=== PATIENT | female | born 1985 ===

== ENCOUNTER 2019-11-29 12:55 | Observation (INO) | payer BC ==
[2019-11-29] MEDS ORDERED: Sodium Chloride 0.9% 10 ML Syringe FLUSH PRN (13:15)
[2019-11-29] MEDS ORDERED: Sodium Chloride 0.9% 2.5 ML Syringe FLUSH PRN (13:15)
[2019-11-29] MEDS ORDERED: Sodium Chloride 0.9% 1,000 ML IV ONE (13:16)
[2019-11-29] MEDS ORDERED: Ondansetron 4 MG/2 ML SDV IVPUSH ONE (13:16)
[2019-11-29] MEDS ORDERED: fentaNYL 100 MCG/2 ML SDV IVPUSH ONE (13:16)
--- NOTE | 2019-11-29 13:39 | EDM.PDOC ---
ED HPI GENERAL MEDICAL PROBLEM - General Chief Complaint: Abdominal Pain Stated Complaint: POSSIBLE PINSIDES Time Seen by Provider: 11/29/19 13:02 Source of Information: Reports: Patient History Limitations: Reports: No Limitations - History of Present Illness INITIAL COMMENTS - FREE TEXT/NARRATIVE: Presents reporting right lower quadrant abdominal pain. States pain started la st night and caused much difficulty with trying to sleep. This morning pain intensified and she became nauseated. Vomited x1 with dry heaves thereafter. She just got off her period. Has a copper IUD. Otherwise healthy without chronic medical problems. Did have 3 small BMs that were soft and brown this morning. The patient states that last night she thought she might be constipated so she took some milk of magnesia. No fever, dysuria. Right Lower Abdomen Pain Score (Numeric/FACES): 6 - Related Data Allergies Allergy/AdvReac Type Severity Reaction Status Date / Time No Known Allergies Allergy Verified 11/29/19 13:03 Home Meds: Home Meds . 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 ED EXAM, GI/ABD - Physical Exam Exam: See Below Exam Limited By: No Limitations General Appearance: Alert, No Apparent Distress Ears: Normal External Exam Nose: Normal Inspection Throat/Mouth: Normal Inspection Head: Atraumatic, Normocephalic Neck: Normal Inspection Respiratory/Chest: No Respiratory Distress, Lungs Clear, Normal Breath Sounds Cardiovascular: Normal Peripheral Pulses, Regular Rate, Rhythm GI/Abdominal Exam: Normal Bowel Sounds, Soft, No Distention, Other (Visit tenderness right lower quadrant. Positive psoas sign.) Back Exam: Normal Inspection Extremities: Normal Inspection Neurological: Alert, Oriented, Normal Cognition Psychiatric: Normal Affect, Normal Mood Skin Exam: Warm, Dry, Intact, Normal Color, No Rash Lymphatic: No Adenopathy Course - Vital Signs Last Recorded V/S: Last Vital Signs Temp 35.9 C L 11/29/19 13:04 Pulse 97 11/29/19 13:04 Resp 13 11/29/19 13:04 BP 114/66 11/29/19 13:04 Pulse Ox 100 11/29/19 13:04 - Orders/Labs/Meds Orders: Active Orders 24 hr Category Date Time Status Patient Status [ADT] Stat ADT 11/29/19 14:26 Ordered CORONAVIRUS COVID-19 TOMAS [MOLEC] Stat Lab 11/29/19 14:20 Received Sodium Chloride 0.9% [Saline Flush] Med 11/29/19 13:15 Active 10 ml FLUSH ASDIRECTED PRN Sodium Chloride 0.9% [Saline Flush] Med 11/29/19 13:15 Active 2.5 ml FLUSH ASDIRECTED PRN Saline Lock Insert [OM.PC] Stat Oth 11/29/19 13:15 Ordered Medication Orders Sodium Chloride (Saline Flush) 10 ml FLUSH ASDIRECTED PRN PRN Reason: Keep Vein Open Last Admin: 11/29/19 13:22 Dose: 10 ml Documented by: JAYSON Sodium Chloride (Saline Flush) 2.5 ml FLUSH ASDIRECTED PRN PRN Reason: Keep Vein Open Last Admin: 11/29/19 13:22 Dose: 2.5 ml Documented by: JAYSON Labs: Laboratory Tests 11/29/19 11/29/19 11/29/19 Range/Units 13:15 13:15 13:32 WBC 14.46 H (4.0-11.0) K/uL RBC 4.67 (4.30-5.90) M/uL Hgb 11.4 L (12.0-16.0) g/dL Hct 36.9 (36.0-46.0) % MCV 79.0 L (80.0-98.0) fL MCH 24.4 L (27.0-32.0) pg MCHC 30.9 L (31.0-37.0) g/dL RDW Std Deviation 47.0 (28.0-62.0) fl RDW Coeff of Lonny 16 H (11.0-15.0) % Plt Count 248 (150-400) K/uL MPV 9.50 (7.40-12.00) fL Neut % (Auto) 86.5 H (48.0-80.0) % Lymph % (Auto) 3.7 L (16.0-40.0) % [place] % (Auto) 9.7 (0.0-15.0) % Eos % (Auto) 0.0 (0.0-7.0) % Baso % (Auto) 0.1 (0.0-1.5) % Neut # (Auto) 12.5 H (1.4-5.7) K/uL Lymph # (Auto) 0.5 L (0.6-2.4) K/uL [place] # (Auto) 1.4 H (0.0-0.8) K/uL Eos # (Auto) 0.0 (0.0-0.7) K/uL Baso # (Auto) 0.0 (0.0-0.1) K/uL Nucleated RBC % 0.0 /100WBC Nucleated RBCs # 0 K/uL Sodium (136-145) mmol/L Potassium (3.5-5.1) mmol/L Chloride (98-107) mmol/L Carbon Dioxide (21.0-32.0) mmol/L BUN (7.0-18.0) mg/dL Creatinine (0.6-1.0) mg/dL Est Cr Clr Drug Dosing mL/min Estimated GFR (MDRD) ml/min Glucose (74-106) mg/dL Calcium (8.5-10.1) mg/dL Total Bilirubin (0.2-1.0) mg/dL AST (15-37) IU/L ALT (14-63) IU/L Alkaline Phosphatase (46-116) U/L Total Protein (6.4-8.2) g/dL Albumin (3.4-5.0) g/dL Globulin (2.6-4.0) g/dL Albumin/Globulin Ratio (0.9-1.6) Urine Color YELLOW Urine Appearance CLEAR Urine pH 8.5 H (5.0-8.0) Ur Specific [place] 1.025 (1.001-1.035) Urine Protein NEGATIVE (NEGATIVE) mg/dL Urine Glucose (UA) NEGATIVE (NEGATIVE) mg/dL Urine Ketones 15 H (NEGATIVE) mg/dL Urine Occult Blood SMALL H (NEGATIVE) Urine Nitrite NEGATIVE (NEGATIVE) Urine Bilirubin NEGATIVE (NEGATIVE) Urine Urobilinogen 0.2 (<2.0) EU/dL Ur Leukocyte Esterase NEGATIVE (NEGATIVE) Urine RBC 0-2 (0-2/HPF) Urine WBC 1-2 (0-5/HPF) Ur Epithelial Cells FEW (NONE-FEW) Amorphous Sediment FEW (NEGATIVE) Urine Bacteria FEW (NEGATIVE) Urine Mucus FEW (NONE-MOD) Urine HCG, Qual NEGATIVE (NEGATIVE) 11/29/19 Range/Units 13:32 WBC (4.0-11.0) K/uL RBC (4.30-5.90) M/uL Hgb (12.0-16.0) g/dL Hct (36.0-46.0) % MCV (80.0-98.0) fL MCH (27.0-32.0) pg MCHC (31.0-37.0) g/dL RDW Std Deviation (28.0-62.0) fl RDW Coeff of Lonny (11.0-15.0) % Plt Count (150-400) K/uL MPV (7.40-12.00) fL Neut % (Auto) (48.0-80.0) % Lymph % (Auto) (16.0-40.0) % [place] % (Auto) (0.0-15.0) % Eos % (Auto) (0.0-7.0) % Baso % (Auto) (0.0-1.5) % Neut # (Auto) (1.4-5.7) K/uL Lymph # (Auto) (0.6-2.4) K/uL [place] # (Auto) (0.0-0.8) K/uL Eos # (Auto) (0.0-0.7) K/uL Baso # (Auto) (0.0-0.1) K/uL Nucleated RBC % /100WBC Nucleated RBCs # K/uL Sodium 137 (136-145) mmol/L Potassium 3.9 (3.5-5.1) mmol/L Chloride 100 (98-107) mmol/L Carbon Dioxide 26.4 (21.0-32.0) mmol/L BUN 7 (7.0-18.0) mg/dL Creatinine 1.0 (0.6-1.0) mg/dL Est Cr Clr Drug Dosing 73.51 mL/min Estimated GFR (MDRD) > 60.0 ml/min Glucose 110 H (74-106) mg/dL Calcium 9.4 (8.5-10.1) mg/dL Total Bilirubin 0.5 (0.2-1.0) mg/dL AST 13 L (15-37) IU/L ALT 18 (14-63) IU/L Alkaline Phosphatase 74 (46-116) U/L Total Protein 7.5 (6.4-8.2) g/dL Albumin 3.9 (3.4-5.0) g/dL Globulin 3.6 (2.6-4.0) g/dL Albumin/Globulin Ratio 1.1 (0.9-1.6) Urine Color Urine Appearance Urine pH (5.0-8.0) Ur Specific [place] (1.001-1.035) Urine Protein (NEGATIVE) mg/dL Urine Glucose (UA) (NEGATIVE) mg/dL Urine Ketones (NEGATIVE) mg/dL Urine Occult Blood (NEGATIVE) Urine Nitrite (NEGATIVE) Urine Bilirubin (NEGATIVE) Urine Urobilinogen (<2.0) EU/dL Ur Leukocyte Esterase (NEGATIVE) Urine RBC (0-2/HPF) Urine WBC (0-5/HPF) Ur Epithelial Cells (NONE-FEW) Amorphous Sediment (NEGATIVE) Urine Bacteria (NEGATIVE) Urine Mucus (NONE-MOD) Urine HCG, Qual (NEGATIVE) Meds: Medications Generic Name Dose Route Start Last Admin Trade Name Fresunshine PRN Reason Stop Dose Admin Sodium Chloride 10 ml 11/29/19 13:15 11/29/19 13:22 Saline Flush FLUSH 10 ml ASDIRECTED PRN Administration Keep Vein Open Sodium Chloride 2.5 ml 11/29/19 13:15 11/29/19 13:22 Saline Flush FLUSH 2.5 ml ASDIRECTED PRN Administration Keep Vein Open Discontinued Medications Generic Name Dose Route Start Last Admin Trade Name Freq PRN Reason Stop Dose Admin Fentanyl 50 mcg 11/29/19 13:16 11/29/19 13:21 Sublimaze IVPUSH 11/29/19 13:17 50 mcg ONETIME ONE Administration Sodium Chloride 1,000 mls @ 999 mls/hr 11/29/19 13:16 11/29/19 13:20 Normal Saline IV 11/29/19 14:16 999 mls/hr STAT ONE Administration Ondansetron HCl 4 mg 11/29/19 13:16 11/29/19 13:20 Zofran IVPUSH 11/29/19 13:17 4 mg ONETIME ONE Administration - Re-Assessments/Exams Free Text/Narrative Re-Assessment/Exam: 11/29/19 14:[address] Gamaliel Davison, Gen Surg regarding history, lab, CT findings. Departure - Discharge Information Referrals: Héctor Villegas MD [Primary Care Provider] - Forms: ED Department Discharge Sepsis Event Note (ED) - Evaluation Sepsis Screening Result: No Definite Risk - Focused Exam Vital Signs: Vital Signs Temp Pulse Resp BP Pulse Ox 11/29/19 13:04 35.9 C L 97 13 114/66 100 - My Orders Last 24 Hours: My Active Orders 11/29/19 13:15 Sodium Chloride 0.9% [Saline Flush] 10 ml FLUSH ASDIRECTED PRN Sodium Chloride 0.9% [Saline Flush] 2.5 ml FLUSH ASDIRECTED PRN Saline Lock Insert [OM.PC] Stat 11/29/19 14:20 CORONAVIRUS COVID-19 TOMAS [MOLEC] Stat 11/29/19 14:26 Patient Status [ADT] Stat - Assessment/Plan Last 24 Hours: My Active Orders 11/29/19 13:15 Sodium Chloride 0.9% [Saline Flush] 10 ml FLUSH ASDIRECTED PRN Sodium Chloride 0.9% [Saline Flush] 2.5 ml FLUSH ASDIRECTED PRN Saline Lock Insert [OM.PC] Stat 11/29/19 14:20 CORONAVIRUS COVID-19 TOMAS [MOLEC] Stat 11/29/19 14:26 Patient Status [ADT] Stat
[2019-11-29 13:59] LABS: BLOOD UREA NITROGEN,BUN 7 mg/dL (7.0-18.0); CARBON DIOXIDE,CO2 26.4 mmol/L (21.0-32.0); CHLORIDE,CL 100 mmol/L (98-107); GLUCOSE RANDOM 110 mg/dL (74-106); POTASSIUM,K 3.9 mmol/L (3.5-5.1); SODIUM,NA 137 mmol/L (136-145)
--- NOTE | 2019-11-29 14:16 | CT ---
CT abdomen and pelvis Technique: Multiple axial sections were obtained from above the dome of the diaphragm inferiorly through the pubic symphysis. Intravenous and oral contrast not utilized. Reconstructed coronal and sagittal images were obtained. Findings: Enlarged appendix is seen containing appendicoliths. Surrounding inflammatory change is seen. Findings are compatible with appendicitis. Other findings: Visualized lung bases show nothing acute. Liver contains no focal parenchymal abnormality. Spleen appears normal. Kidneys show no abnormal calcifications or hydronephrosis. Adrenal glands show no nodule. Pancreas shows no discrete abnormality. Aorta shows no aneurysm. Gallbladder contains no calcified gallstones. No retroperitoneal adenopathy or mesenteric abnormalities are seen. No pelvic mass or adenopathy is seen. Small amount of fluid is seen within the dependent pelvis which most likely is physiologic. IUD is present within the endometrial cavity of the uterus. Bone window settings were reviewed which shows no acute osseous finding. Impression: 1. Findings compatible with appendicitis as noted above. 2. Other findings believed to be incidental. Diagnostic code #5 This report was dictated in MDT
[2019-11-29] MEDS ORDERED: Ertapenem 1 GM in Sodium Chloride 0.9% 50 ML IV ONE ×2 (14:53→15:30)
[2019-11-29] MEDS ORDERED: Bupivacaine 0.5% 30 ML SDV ONE (15:26)
[2019-11-29] MEDS ORDERED: Propofol 200 MG/20 ML SDV ONE ×2 (15:30→15:39)
[2019-11-29] MEDS ORDERED: Ondansetron 4 MG/2 ML SDV ONE (15:30)
[2019-11-29] MEDS ORDERED: fentaNYL 100 MCG/2 ML SDV ONE (15:30)
[2019-11-29] MEDS ORDERED: Ketorolac 30 MG/ML SDV ONE (15:31)
[2019-11-29] MEDS ORDERED: Midazolam 1 MG/ML 2 ML SDV ONE (15:31)
[2019-11-29] MEDS ORDERED: Succinylcholine/Sod PF 100 MG/5 ML SYRINGE IV ONE (15:32)
[2019-11-29] MEDS ORDERED: Glycopyrrolate 0.2 MG/ML SDV ONE ×2 (15:32→17:20)
[2019-11-29] MEDS ORDERED: Rocuronium Bromide 50 MG/5 ML Syringe ONE (15:32)
[2019-11-29] MEDS ORDERED: Sodium Chloride 0.9% 20 ML ONE (15:34)
--- NOTE | 2019-11-29 15:56 | PCM.PREANE ---
Preanesthetic Assessment - Procedure Proposed Procedure: Lap appy - Anesthesia/Transfusion/Family Hx Anesthesia History: Prior Anesthesia Without Reaction Family History of Anesthesia Reaction: No Transfusion History: No Prior Transfusion(s) Intubation History: Intubation other than for Surgery in past - Review of Systems General: No Symptoms Pulmonary: No Symptoms Cardiovascular: No Symptoms Gastrointestinal: Nausea, Other (Acute Appendititis) Neurological: No Symptoms Other: Reports: Anxiety (Claustraphobic) - Physical Assessment NPO Status Date: 11/29/19 NPO Status Time: 09:30 (Sip of water) Vital Signs: Last Vital Signs Temp 35.9 C L 11/29/19 13:04 Pulse 118 H 11/29/19 15:26 Resp 15 11/29/19 15:26 BP 104/69 11/29/19 15:26 Pulse Ox 99 11/29/19 15:26 Height: 1.68 m Weight: 61.235 kg ASA Class: 1E Mental Status: Alert & Oriented x3 Airway Class: Mallampati = 2 Dentition: Reports: Normal Dentition Thyro-Mental Finger Breadths: 3 Mouth Opening Finger Breadths: 3 ROM/Head Extension: Full Lungs: Clear to Auscultation Cardiovascular: Regular Rate - Lab Values: Laboratory Last Values WBC 14.46 K/uL (4.0-11.0) H 11/29/19 13:32 RBC 4.67 M/uL (4.30-5.90) 11/29/19 13:32 Hgb 11.4 g/dL (12.0-16.0) L 11/29/19 13:32 Hct 36.9 % (36.0-46.0) 11/29/19 13:32 MCV 79.0 fL (80.0-98.0) L 11/29/19 13:32 MCH 24.4 pg (27.0-32.0) L 11/29/19 13:32 MCHC 30.9 g/dL (31.0-37.0) L 11/29/19 13:32 RDW Std Deviation 47.0 fl (28.0-62.0) 11/29/19 13:32 RDW Coeff of Lonny 16 % (11.0-15.0) H 11/29/19 13:32 Plt Count 248 K/uL (150-400) 11/29/19 13:32 MPV 9.50 fL (7.40-12.00) 11/29/19 13:32 Neut % (Auto) 86.5 % (48.0-80.0) H 11/29/19 13:32 Lymph % (Auto) 3.7 % (16.0-40.0) L 11/29/19 13:32 [place] % (Auto) 9.7 % (0.0-15.0) 11/29/19 13:32 Eos % (Auto) 0.0 % (0.0-7.0) 11/29/19 13:32 Baso % (Auto) 0.1 % (0.0-1.5) 11/29/19 13:32 Neut # (Auto) 12.5 K/uL (1.4-5.7) H 11/29/19 13:32 Lymph # (Auto) 0.5 K/uL (0.6-2.4) L 11/29/19 13:32 [place] # (Auto) 1.4 K/uL (0.0-0.8) H 11/29/19 13:32 Eos # (Auto) 0.0 K/uL (0.0-0.7) 11/29/19 13:32 Baso # (Auto) 0.0 K/uL (0.0-0.1) 11/29/19 13:32 Nucleated RBC % 0.0 /100WBC 11/29/19 13:32 Nucleated RBCs # 0 K/uL 11/29/19 13:32 Sodium 137 mmol/L (136-145) 11/29/19 13:32 Potassium 3.9 mmol/L (3.5-5.1) 11/29/19 13:32 Chloride 100 mmol/L (98-107) 11/29/19 13:32 Carbon Dioxide 26.4 mmol/L (21.0-32.0) 11/29/19 13:32 BUN 7 mg/dL (7.0-18.0) 11/29/19 13:32 Creatinine 1.0 mg/dL (0.6-1.0) 11/29/19 13:32 Est Cr Clr Drug Dosing 73.51 mL/min 11/29/19 13:32 Estimated GFR (MDRD) > 60.0 ml/min 11/29/19 13:32 Glucose 110 mg/dL (74-106) H 11/29/19 13:32 Calcium 9.4 mg/dL (8.5-10.1) 11/29/19 13:32 Total Bilirubin 0.5 mg/dL (0.2-1.0) 11/29/19 13:32 AST 13 IU/L (15-37) L 11/29/19 13:32 ALT 18 IU/L (14-63) 11/29/19 13:32 Alkaline Phosphatase 74 U/L (46-116) 11/29/19 13:32 Total Protein 7.5 g/dL (6.4-8.2) 11/29/19 13:32 Albumin 3.9 g/dL (3.4-5.0) 11/29/19 13:32 Globulin 3.6 g/dL (2.6-4.0) 11/29/19 13:32 Albumin/Globulin Ratio 1.1 (0.9-1.6) 11/29/19 13:32 Urine Color YELLOW 11/29/19 13:15 Urine Appearance CLEAR 11/29/19 13:15 Urine pH 8.5 (5.0-8.0) H 11/29/19 13:15 Ur Specific [place] 1.025 (1.001-1.035) 11/29/19 13:15 Urine Protein NEGATIVE mg/dL (NEGATIVE) 11/29/19 13:15 Urine Glucose (UA) NEGATIVE mg/dL (NEGATIVE) 11/29/19 13:15 Urine Ketones 15 mg/dL (NEGATIVE) H 11/29/19 13:15 Urine Occult Blood SMALL (NEGATIVE) H 11/29/19 13:15 Urine Nitrite NEGATIVE (NEGATIVE) 11/29/19 13:15 Urine Bilirubin NEGATIVE (NEGATIVE) 11/29/19 13:15 Urine Urobilinogen 0.2 EU/dL (<2.0) 11/29/19 13:15 Ur Leukocyte Esterase NEGATIVE (NEGATIVE) 11/29/19 13:15 Urine RBC 0-2 (0-2/HPF) 11/29/19 13:15 Urine WBC 1-2 (0-5/HPF) 11/29/19 13:15 Ur Epithelial Cells FEW (NONE-FEW) 11/29/19 13:15 Amorphous Sediment FEW (NEGATIVE) 11/29/19 13:15 Urine Bacteria FEW (NEGATIVE) 11/29/19 13:15 Urine Mucus FEW (NONE-MOD) 11/29/19 13:15 Urine HCG, Qual NEGATIVE (NEGATIVE) 11/29/19 13:15 SARS Virus RNA (PCR) NEGATIVE (NEGATIVE) 11/29/19 14:20 - Allergies Allergies/Adverse Reactions: Allergies Allergy/AdvReac Type Severity Reaction Status Date / Time No Known Allergies Allergy Verified 11/29/19 13:03 - Blood Blood Available: No - Anesthesia Plan Pre-Op Medication Ordered: Other (Ertapenem) - Acknowledgements Anesthesia Type Planned: General Anesthesia Pt an Appropriate Candidate for the Planned Anesthesia: Yes Alternatives and Risks of Anesthesia Discussed w Pt/Guardian: Yes Pt/Guardian Understands and Agrees with Anesthesia Plan: Yes Additional Comments: Discussed, ? answered, permit signed. 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 [No Known Home Meds] 11/29/19 [History] - CURRENT (IN HOUSE) MEDS Current Meds: Current Medications Ertapenem 1 gm/ Sodium (Chloride) 50 mls @ 100 mls/hr IV ONETIME ONE Stop: 11/29/19 15:59 Last Admin: 11/29/19 15:30 Dose: 100 mls/hr Documented by: Sodium Chloride (Saline Flush) 10 ml FLUSH ASDIRECTED PRN PRN Reason: Keep Vein Open Last Admin: 11/29/19 13:22 Dose: 10 ml Documented by: Sodium Chloride (Saline Flush) 2.5 ml FLUSH ASDIRECTED PRN PRN Reason: Keep Vein Open Last Admin: 11/29/19 13:22 Dose: 2.5 ml Documented by: Discontinued Medications Bupivacaine HCl (Marcaine 0.5%) Confirm Administered Dose 30 ml .ROUTE .STK-MED ONE Stop: 11/29/19 15:27 Fentanyl (Sublimaze) 50 mcg IVPUSH ONETIME ONE Stop: 11/29/19 13:17 Last Admin: 11/29/19 13:21 Dose: 50 mcg Documented by: Fentanyl (Sublimaze) Confirm Administered Dose 100 mcg .ROUTE .STK-MED ONE Stop: 11/29/19 15:31 Glycopyrrolate (Robinul) Confirm Administered Dose 0.2 mg .ROUTE .STK-MED ONE Stop: 11/29/19 15:33 Sodium Chloride (Normal Saline) 1,000 mls @ 999 mls/hr IV STAT ONE Stop: 11/29/19 14:16 Last Admin: 11/29/19 13:20 Dose: 999 mls/hr Documented by: Ertapenem 1 gm/ Sodium (Chloride) 50 mls @ 100 mls/hr IV ONETIME ONE Stop: 11/29/19 15:22 Last Admin: 11/29/19 15:23 Dose: Not Given Documented by: Sodium Chloride (Normal Saline) Confirm Administered Dose 20 mls @ as directed .ROUTE .STK-MED ONE Stop: 11/29/19 15:35 Acetaminophen (Ofirmev) Confirm Administered Dose 100 mls @ as directed .ROUTE .STK-MED ONE Stop: 11/29/19 15:42 Ketorolac Tromethamine (Toradol) Confirm Administered Dose 30 mg .ROUTE .STK-MED ONE Stop: 11/29/19 15:32 Midazolam HCl (Versed 1 Mg/Ml) Confirm Administered Dose 2 mg .ROUTE .STK-MED ONE Stop: 11/29/19 15:32 Ondansetron HCl (Zofran) 4 mg IVPUSH ONETIME ONE Stop: 11/29/19 13:17 Last Admin: 11/29/19 13:20 Dose: 4 mg Documented by: Ondansetron HCl (Zofran) Confirm Administered Dose 4 mg .ROUTE .STK-MED ONE Stop: 11/29/19 15:31 Propofol (Diprivan 20 Ml) Confirm Administered Dose 200 mg .ROUTE .STK-MED ONE Stop: 11/29/19 15:31 Propofol (Diprivan 20 Ml) Confirm Administered Dose 200 mg .ROUTE .STK-MED ONE Stop: 11/29/19 15:40 Rocuronium Julian (Rocuronium Julian) Confirm Administered Dose 50 mg .ROUTE .STK-MED ONE Stop: 11/29/19 15:33 Vecuronium Julian (Vecuronium) Confirm Administered Dose 10 mg .ROUTE .STK-MED ONE Stop: 11/29/19 15:34
--- NOTE | 2019-11-29 16:08 | CONS ---
DATE OF CONSULTATION: 11/29/2019 DATE OF : 1985 PRIMARY CARE PHYSICIAN: MAGUI MULLINS REASON FOR CONSULT: The patient is a pleasant 34-year-old female who says yesterday evening she was having some abdominal pains around 6 p.m. She thought it was gas pain, but it got worse throughout the evening. She had a hard time sleeping. Pain migrated to the right side, and she started having some vomiting this morning and came to the ER for evaluation. On the CT scan, she did have an enlarged appendix containing appendicolith with surrounding inflammatory change consistent with appendicitis. She was also found to have an elevated white cell count of 14.46. The patient denies any fevers or chills. The patient states she had been having normal bowel movements. PAST MEDICAL HISTORY: The patient denies any current home medications. ALLERGIES: No known drug allergies. PAST SURGICAL HISTORY: Multiple C-sections. SOCIAL HISTORY: The patient denies any tobacco use. Denies any illicit drug use. Denies any alcohol use. FAMILY HISTORY: Father with polycystic kidney disease. REVIEW OF SYSTEMS: Complete 12-point review of systems was done and was negative except for what is in the HPI. PHYSICAL EXAMINATION: GENERAL: The patient is lying comfortably on the ER bed. She is alert and oriented, in no acute distress. VITAL SIGNS: Temperature is 96.7, pulse is 97, blood pressure is 114/66, saturating 100% on room air. HEENT: Head is normocephalic and atraumatic. She is wearing her mask. LUNGS: Clear to auscultation bilaterally. No rhonchi or wheezing heard. HEART: Regular rhythm. No murmur appreciated. ABDOMEN: Soft and nondistended. She does have tenderness in the right lower quadrant at [place] point. She does have some guarding. No rebound tenderness. EXTREMITIES: No edema. NEUROLOGIC: Grossly, no motor or neurologic deficit noted. LABORATORY DATA: White cell count is 14.46, hemoglobin is 11.4, platelet count is 248. Sodium 137, potassium 3.9, BUN 7, creatinine 1, glucose is 110. test is negative. IMAGING: Did look at the images and reviewed the report. Does look to have an enlarged swollen appendix with surrounding inflammation consistent with appendicitis with appendicolith. ASSESSMENT AND PLAN: This is a pleasant 34-year-old female with most likely appendicitis. Went over with the patient what appendix was. Went over laparoscopic appendectomy. Went over the risks, goals, and alternatives to the procedure. Risks include, but are not limited to bleeding, infection, abscess formation, injury to nearby structures, failure of staple line, hernia formation, need to convert to open, scar formation, and that this could be something other than appendicitis. The patient understands. She wishes to proceed. ER has already started with antibiotics and hydration. Called the OR team in for laparoscopic appendectomy. ZIGGY MEAD /[id number] LIT
[2019-11-29] MEDS ORDERED: Morphine 10 MG/ML Syringe ONE (16:25)
[2019-11-29] MEDS ORDERED: Morphine 2 MG/ML SYRINGE IVPUSH ONE (16:33)
[2019-11-29] MEDS ORDERED: Octyl 2-Cyanoacrylate 1 Tube ONE (17:19)
[2019-11-29] MEDS ORDERED: HYDROmorphone 2 MG/ML Syringe IVPUSH PRN (17:38)
[2019-11-29] MEDS ORDERED: Ondansetron 4 MG/2 ML SDV IVPUSH PRN (17:38)
--- NOTE | 2019-11-29 17:38 | PCM.OPNOTE ---
- General Post-Op/Procedure Note Date of Surgery/Procedure: 11/29/19 Operative Procedure(s): Lapascopic appendectomy, lysis of adhesions Findings: acute appendicitis Dictation #[id number] Pre Op Diagnosis: acute appendicitis Post-Op Diagnosis: acute appendicitis Anesthesia Technique: General ET Tube Primary Surgeon: Gamaliel Davison Pathology: appendix EBL in mLs: 10 Complications: None Condition: Stable
[2019-11-29] MEDS ORDERED: Lactated Ringers 1,000 ML IV SCH (17:45)
--- NOTE | 2019-11-29 18:13 | PCM.POSTAN ---
POST ANESTHESIA ASSESSMENT - MENTAL STATUS Mental Status: Alert - VITAL SIGNS Vital Signs: Last Vital Signs Temp 37.6 C 11/29/19 17:45 Pulse 92 11/29/19 18:06 Resp 15 11/29/19 18:06 BP 91/50 L 11/29/19 18:06 Pulse Ox 96 11/29/19 18:06 - RESPIRATORY Respiratory Status: Respiratory Rate WNL, Airway Patent, O2 Saturation Stable - CARDIOVASCULAR CV Status: Pulse Rate WNL, Blood Pressure Stable - GASTROINTESTINAL GI Status: No Symptoms - PAIN Pain Score: 1 (soreness) - POST OP HYDRATION Hydration Status: Adequate & Stable - OBSERVATIONS Free Text/Narrative:: Doing well. Tired. Ready for transfer to floor. Will stay overnight. No problems noted.
[2019-11-29] MEDS: Acetaminophen/HYDROcodone 325-5 MG Tab PO PRN (20:10)
--- NOTE | 2019-11-29 20:23 | OR ---
SURGEON: SHRUTHI CARRASCO MD DATE OF PROCEDURE: 11/29/2019 PREOPERATIVE DIAGNOSIS: Acute appendicitis. POSTOPERATIVE DIAGNOSIS: Acute appendicitis. PROCEDURE PERFORMED: Laparoscopic appendectomy and lysis of some adhesions. ANESTHESIA: General. PRIMARY SURGEON: Shruthi Carrasco MD ESTIMATED BLOOD LOSS: 10 mL. COMPLICATIONS: None. SPECIMENS: Appendix. REASON FOR PROCEDURE: The patient is a pleasant 34-year-old female who yesterday evening started having some what she thought was gas pain. It has gotten worse, it went to the right lower quadrant. She had some vomiting this morning. She came to the hospital for evaluation. She had a CT scan that showed likely appendicitis and elevated white cell count. She was given antibiotics and taken to the OR for a laparoscopic appendectomy. I did go over with the patient risks, goals, and alternatives of the procedure. Risks include, but not limited to, bleeding, infection, abscess formation, failure of staple line, hernia formation, need to convert to open, that this could be something other than appendicitis, and injury to nearby structures. The patient understands and wishes to proceed. OPERATIVE NARRATIVE: The patient was brought to OR. She was prepped and draped in the usual sterile fashion. Snyder was placed. SCDs were placed. Anesthesia provided by the Anesthesia team. A time-out was performed. An infraumbilical incision was made and a Veress needle was placed. This was suctioned up and the bladder sulcus and then had a positive drop test. Now, insufflation was began and a pneumoperitoneum was established. Now, a 5 mm trocar was placed under direct visualization. Through that 5 mm trocar, abdomen was inspected. The patient did have some adhesions on the lower midline from her previous . Now, a 10 mm trocar was placed in the left lower abdomen under direct visualization. The adhesions were taken down with Harmonic scalpel. Now, another 5 mm trocar was placed in the left upper abdomen. Now, the patient was placed in a head down position and airplaned toward myself. Omentum had walled off the appendix and even kind of folded on top of itself. The omentum was gently dissected away from the appendix. Appendix did not appear to be grossly perforated, was darkened with some linear necrosis starting. Now, the mesoappendix was taken with a Harmonic scalpel. The base of the appendix was cleared and the appendix was removed at its junction to cecum with a blue load linear stapler. The appendix was then taken out. The area was then inspected. There was good hemostasis of the mesoappendix and the staple line. The staple line appeared intact. Some light irrigation and suctioning were done. Rest of the abdomen was inspected, no other pathologies seen. Now, the 10 mm trocar was closed laparoscopically with the suture passer. Now, the pneumoperitoneum was released. The 5 mm trocars were removed. All the trocar spots were now again injected with the remaining of the local and closed with 4-0 Monocryl and Dermabond. The patient was transferred to recovery room in stable condition. Sponge and needle counts were correct. ZIGGY / BOSTON /[id number]
[2019-11-30] MEDS: Acetaminophen/HYDROcodone 325-5 MG Tab PO PRN ×3 (05:09→14:42)
--- NOTE | 2019-11-30 08:03 | PCM48HPAN ---
Post Anesthesia Note - EVALUATION WITHIN 48HRS OF ANESTHETIC Vital Signs in Normal Range: Yes Patient Participated in Evaluation: Yes Respiratory Function Stable: Yes Airway Patent: Yes Cardiovascular Function Stable: Yes Hydration Status Stable: Yes Pain Control Satisfactory: Yes Nausea and Vomiting Control Satisfactory: Yes Mental Status Recovered: Yes Vital Signs: Last Vital Signs Temp 36.3 C 11/30/19 04:00 Pulse 94 11/30/19 05:01 Resp 12 11/30/19 04:00 BP 93/55 L 11/30/19 05:01 Pulse Ox 94 L 11/30/19 04:00 - COMMENTS/OBSERVATIONS Free Text/Narrative:: The patient states that she had an episode of emesis controlled with zofran, and no further incidences. Still feels "achy" from procedure, and drowsy from anesthetic. There were no apparent anesthetic complications. Discharge per criteria.
--- NOTE | 2019-11-30 19:32 | DISCH ---
DATE OF DISCHARGE: 11/30/2019 PRIMARY CARE PHYSICIAN: MAGUI MULLINS MD PRIMARY DISCHARGE DIAGNOSIS: Acute appendicitis. SURGERY: Laparoscopic appendectomy. DISCHARGE MEDICATIONS: Leigh 5/325 one tablet q.6 hours p.r.n. for acute pain after acute appendicitis surgery. REASON FOR ADMISSION: The patient is a pleasant 34-year-old female who had abdominal pain consistent with appendicitis, came to the ER and was diagnosed with acute appendicitis. She went to the OR for laparoscopic appendectomy, and then was admitted to the hospital for observation postoperatively. HOSPITAL COURSE: The patient underwent laparoscopic appendectomy on 11/29/2019 for acute appendicitis. It did not appear to be perforated. She tolerated the procedure well. The following day, the patient was feeling good. She was tolerating a diet. She said she felt much better than before the surgery. She had kind of feeling a little bit sore from the surgery, but overall felt ready to go home. PHYSICAL EXAMINATION: GENERAL: The patient is lying comfortably on the hospital bed. She is alert and oriented, in no acute distress. VITAL SIGNS: Temperature is 98.6, pulse 97, blood pressure is 89/43, saturating 99% on room air. At this time, her blood pressures are low; however, the patient states her blood pressure usually runs in the low 100s, 90s. It is normal for her. When she goes to the doctors, she is always asked if she is a runner, which she said she is not. LUNGS: Clear to auscultation bilaterally. No rhonchi or wheezing heard. HEART: Regular rate and rhythm. No murmur appreciated. ABDOMEN: Soft. Some slight bloating and still slightly tender right lower abdomen, much improved from before the surgery and some minimal incisional tenderness. Incisions are all clean, dry, and intact, with Dermabond placed. No signs of infection. DISCHARGE INSTRUCTIONS: The patient will be discharged home on a later day. She is tolerating diet. I did go over with the patient her surgery and answered her questions. The patient needs to follow up with me in 2 weeks for postoperative visit or sooner if she has any questions or concerns. If she has any fever or chills, nausea or vomiting, she needs to come back for reevaluation. The Dermabond will peel off on its own. She may shower today. She needs to avoid heavy lifting or strenuous activity until her postoperative visit. All her questions were answered. ZIGGY MEAD /[id number] LIT
== END 2019-11-30 15:35 | disposition home or self-care (01) ==
LOC: MW.ED 12:55 → MW.SDS 14:48 → MW.MS 17:31 → MW.SDS 17:38 → MW.MS 17:56
PROVIDERS: ADMIT Surgery; ATTEND Surgery
DX: K35.80 Unspecified acute appendicitis (principal); Z01.812 Encounter for preprocedural laboratory examination; Z20.828 Contact with and (suspected) exposure to other viral communicable diseases
CPT/HCPCS: 36415; 44970; 74176; 80053; 81001; 81025; 85025; 87635; 88304; 96361; 96365; 96375; 99285; A9270; J0131; J1335; J1885; J2001; J2250; J2270; J2405; J2704; J3010; J3490; J7030; J7050; J7120; 00840; J0330; U0002